=== PATIENT | male | born 1945 | race Caucasian/White ===

== ENCOUNTER 2016-12-11 19:33 | Emergency (ER) | payer MEDICARE, OTHER | END 2016-12-11 21:07 | disposition home or self-care (01) | LOC: SED 19:33 | DX: F10.129 Alcohol abuse with intoxication, unspecified (principal); F17.210 Nicotine dependence, cigarettes, uncomplicated; Z90.89 Acquired absence of other organs | CPT/HCPCS: 99282 ==